=== PATIENT | male | born 2000 | race American Indian/Alaskan Native ===

== ENCOUNTER 2022-05-27 22:06 | Emergency (ER) | payer SELFPAY ==
[2022-05-27 22:20] VITALS: BMI 23.5
--- NOTE | 2022-05-28 00:04 | PC.NURSE ---
pt denies any self harm or plan, pt denies thoughts of wanting to harm others. pt steady gait, patent airway. pt showed up to ambulance bay door around 2244 asking if he had left his phone here. I didn't know he'd left the waiting room, i let him in and asked again do you have any thoughts or plans to harm yourself, he said no. i escorted him back to the waiting room. no phone was found, checked with reg desk. no phone found. pt said maybe he left it or the timber packer had it.
== END 2022-05-27 23:00 | disposition left against medical advice (07) ==
PROVIDERS: Emergency Provider Emergency Medicine
CPT/HCPCS: 99281

== ENCOUNTER 2022-06-29 21:51 | Emergency (ER) | payer SELFPAY ==
[2022-06-29 21:58] VITALS: BP 140/76; PULSE 120; RESP 20; TEMP 36.2; O2SAT 97
--- NOTE | 2022-06-29 21:59 | PC.NURSE ---
Patient getting on the floor in the middle of the room kneeling on one knee, leaning forward and growling at surveillance sensor officer at the door.
--- NOTE | 2022-06-29 22:17 | ED_ITS ---
HPI - Psych General Chief Complaint: Psychiatric Symptoms Stated Complaint: Involuntary - Gravely Disabled Time Seen by Provider: 06/29/22 22:17 Source: police Mode of arrival: other (Police) Limitations: other (Intoxication) History of Present Illness HPI Narrative: Patient is a 22-year-old male who arrives in police custody under a id a for evaluation of alcohol intoxication and concerns for the ability to take care of himself. Police state that they were called by a bystander after the patient was walking down the center of the wrote holding his side. He was obviously intoxicated. There was some concern that maybe he was injured. The police confronted the individual. They stated that he was obviously intoxicated and only minimally followed directions. Initially they were going to release the patient telling him to walk on the sidewalk but he continued to walk down the center of the road. He then went up to the back of the [employer] unit police car and started pounding on the windows. Also during this time the patient was belligerent and barking like a dog and yelling out. He arrived in handcuffs. He is unable to provide any HPI or review of systems. Is very quickly made aware upon his arrival that he would need to be sedated for his safety and the safety of others. Related Data Allergies Allergy/AdvReac Type Severity Reaction Status Date / Time Sulfa (Sulfonamide Allergy Verified 05/27/22 22:30 Antibiotics) Review of Systems Review of Systems ROS Unobtainable: Unobtainable due to mental condition Patient History Medical History Alcohol abuse tobacco type: vaping alcohol intake frequency: 0-2 drinks per day Substance Use Type: marijuana Exam Initial Vital Signs Initial Vital Signs: Vital Signs Temperature 97.2 F L 06/29/22 21:58 Pulse Rate 120 H 06/29/22 21:58 Respiratory Rate 20 06/29/22 21:58 Blood Pressure 140/76 06/29/22 21:58 Pulse Oximetry 97 06/29/22 21:58 Oxygen Delivery Method 06/29/22 21:58 Const General: disheveled HENMT Head: normal to inspection and normocephalic Resp Effort & Inspection: normal respiratory effort Auscultation: clear to auscultation bilaterally Cardio Rate: tachycardic Rhythm: regular rhythm Skin General: no rashes or lesions noted Neuro Other: Patient does not follow commands. He does move all 4 extremities. He is yelling and screaming. Extrem Other: No gross deformities Course Orders Ordered: ED Orders 06/29/22 22:10 Acetaminophen Stat Complete Blood Count AUTO DIFF Stat Comprehensive Metabolic Panel Stat Ethanol (ETOH) Stat Lipase Stat Salicylate Stat Thyroid Stimulating Hormone Stat 06/29/22 22:15 Covid-19 + FLU A/B + RSV - PCR Stat 06/29/22 22:19 Consult to [facility] [place] - Excellence Consultant Stat 06/29/22 22:58 Urinalysis and Microscopic Stat Urine Drug Screen, Rapid Stat Discontinued Medications Diphenhydramine HCl (Diphenhydramine 50 Mg/Ml Vial) 25 mg IM NOW ONE Stop: 06/29/22 22:18 Last Admin: 06/29/22 22:23 Dose: 25 mg Documented By: BELINDA Diphenhydramine HCl (Diphenhydramine 50 Mg/Ml Vial) 25 mg IM NOW ONE Stop: 06/29/22 23:46 Last Admin: 06/29/22 23:47 Dose: 25 mg Documented By: BELINDA Haloperidol (Haloperidol 5 Mg/Ml Vial) 5 mg IM NOW ONE Stop: 06/29/22 22:18 Last Admin: 06/29/22 22:23 Dose: 5 mg Documented By: SB Haloperidol (Haloperidol 5 Mg/Ml Vial) 2 mg IM NOW ONE Stop: 06/29/22 22:41 Last Admin: 06/29/22 22:43 Dose: 2 mg Documented By: SB Lorazepam (Lorazepam 2 Mg/Ml Inj) 2 mg IM NOW ONE Stop: 06/29/22 22:18 Last Admin: 06/29/22 22:23 Dose: 2 mg Documented By: SB Lorazepam (Lorazepam 2 Mg/Ml Inj) 2 mg IM NOW ONE Stop: 06/29/22 23:10 Last Admin: 06/29/22 23:13 Dose: 2 mg Documented By: SB Vital Signs Vital signs: Vital Signs - 8 hr 06/29/22 22:57 06/29/22 23:21 06/29/22 23:32 Pulse Rate 122 H 88 Respiratory Rate Blood Pressure 137/79 Pulse Oximetry 96 92 100 Oxygen Delivery Method Room Air Nasal Cannula Oxygen Flow Rate 2 06/29/22 23:28 06/29/22 23:53 06/30/22 00:04 Pulse Rate 86 83 Respiratory Rate Blood Pressure Pulse Oximetry 88 L 94 94 Oxygen Delivery Method Room Air Room Air Room Air Oxygen Flow Rate 0 06/30/22 01:00 06/30/22 03:46 Pulse Rate 83 77 Respiratory Rate 14 Blood Pressure 115/55 L Pulse Oximetry 94 97 Oxygen Delivery Method Room Air Room Air Oxygen Flow Rate MDM - Psych Medical Records Attestation: I reviewed the patient's medical records. Lab Data Attestation: I reviewed the patient's lab results. Result diagrams: 06/29/22 22:10 06/29/22 22:10 Labs: Lab Results 06/29/22 06/29/22 06/29/22 Range/Units 22:10 22:10 22:10 WBC 9.6 (4.5-11.0) X10^3/uL RBC 4.91 (4.5-5.9) X10^6/uL Hgb 15.6 (13.5-17.5) g/dL Hct 45.4 (41-53) % MCV 92.5 (80-100) fL MCH 31.8 (26-34) PG MCHC 34.4 (30-36) % RDW 14.8 (11.6-14.8) % Plt Count 284 (150-400) X10^3/uL Neut % (Auto) 50.3 (50-75) % Lymph % (Auto) 42.5 H (25-40) % Creek % (Auto) 6.3 (3-14) % Eos % (Auto) 0.7 L (2-4) % Baso % (Auto) 0.2 (0-2) % Neut # (Auto) 4800 (2665-7232) /uL Lymph # (Auto) 4100 (3722-5308) /uL Creek # (Auto) 600 (0-900) /uL Eos # (Auto) 100 (0-450) /uL Baso # (Auto) 0 (0-100) /uL Sodium 146 H (137-145) mmol/L Potassium 3.2 L (3.4-5.1) mmol/L Chloride 106 (98-107) mmol/L Carbon Dioxide 25 (22-32) mmol/L BUN 9 (9-20) mg/dL Creatinine 0.89 (0.66-1.25) mg/dL Estimated GFR > 60 (>60) mL/min BUN/Creatinine Ratio 10.1 (6-22) Glucose 124 H (70-100) mg/dL Calcium 9.1 (8.4-10.2) mg/dL Total Bilirubin 0.9 (0.2-1.3) mg/dL AST 41 (17-59) IU/L ALT 43 (<50) IU/L Alkaline Phosphatase 92 (38-126) U/L Total Protein 8.8 H (6.3-8.2) g/dL Albumin 5.1 H (3.5-5.0) g/dL Globulin 3.7 (1.7-4.1) g/dL Albumin/Globulin Ratio 1.4 (1.0-2.8) Lipase 47 (23-300) U/L TSH 2.53 (0.47-4.68) uIU/mL Urine Color Urine Appearance Urine pH (4.5-8.0) Ur Specific [place] (1.000-1.035) Urine Protein (Negative) Urine Glucose (UA) (Negative) g/dL Urine Ketones (NEGATIVE) Urine Occult Blood (Negative) Urine Nitrate (Negative) Urine Bilirubin (NEGATIVE) Urine Urobilinogen (0.2) E.U./dL Ur Leukocyte Esterase (NEGATIVE) Urine RBC (0-5/HPF) Urine WBC (0-5/HPF) Urine Bacteria (None) Ur Culture Indicated? Salicylates < 1.0 (<20) mg/dL U Opiates 300ng/mL cut (Negative) Ur Oxycodone Screen (Negative) Urine Methadone Screen (Negative) Acetaminophen < 10 (10-30) ug/mL Ur Barbiturates Screen (Negative) U Tricyclic Antidepress (Negative) Ur Phencyclidine Scrn (Negative) Ur Amphetamines Screen (Negative) U Methamphetamines Scrn (Negative) Ur MDMA Scrn (Ecstasy) (Negative) U Benzodiazepines Scrn (Negative) Urine Cocaine Screen (Negative) U Marijuana (THC) Screen (Negative) Ethyl Alcohol 298 H ( - 10) mg/dL SARS-CoV-2 (PCR) (Negative) Influenza A (RT-PCR) (NEGATIVE) Influenza B (RT-PCR) (NEGATIVE) RSV (PCR) (Negative) 06/29/22 06/29/22 06/29/22 Range/Units 22:15 22:58 22:58 WBC (4.5-11.0) X10^3/uL RBC (4.5-5.9) X10^6/uL Hgb (13.5-17.5) g/dL Hct (41-53) % MCV (80-100) fL MCH (26-34) PG MCHC (30-36) % RDW (11.6-14.8) % Plt Count (150-400) X10^3/uL Neut % (Auto) (50-75) % Lymph % (Auto) (25-40) % Creek % (Auto) (3-14) % Eos % (Auto) (2-4) % Baso % (Auto) (0-2) % Neut # (Auto) (2890-8712) /uL Lymph # (Auto) (0570-6315) /uL Creek # (Auto) (0-900) /uL Eos # (Auto) (0-450) /uL Baso # (Auto) (0-100) /uL Sodium (137-145) mmol/L Potassium (3.4-5.1) mmol/L Chloride (98-107) mmol/L Carbon Dioxide (22-32) mmol/L BUN (9-20) mg/dL Creatinine (0.66-1.25) mg/dL Estimated GFR (>60) mL/min BUN/Creatinine Ratio (6-22) Glucose (70-100) mg/dL Calcium (8.4-10.2) mg/dL Total Bilirubin (0.2-1.3) mg/dL AST (17-59) IU/L ALT (<50) IU/L Alkaline Phosphatase (38-126) U/L Total Protein (6.3-8.2) g/dL Albumin (3.5-5.0) g/dL Globulin (1.7-4.1) g/dL Albumin/Globulin Ratio (1.0-2.8) Lipase (23-300) U/L TSH (0.47-4.68) uIU/mL Urine Color Straw Urine Appearance Clear Urine pH 5 (4.5-8.0) Ur Specific [place] 1.005 (1.000-1.035) Urine Protein Negative (Negative) Urine Glucose (UA) Negative (Negative) g/dL Urine Ketones Negative (NEGATIVE) Urine Occult Blood Negative (Negative) Urine Nitrate Negative (Negative) Urine Bilirubin Negative (NEGATIVE) Urine Urobilinogen Normal (0.2) E.U./dL Ur Leukocyte Esterase Negative (NEGATIVE) Urine RBC None seen (0-5/HPF) Urine WBC None seen (0-5/HPF) Urine Bacteria None seen (None) Ur Culture Indicated? Cult not indicated Salicylates (<20) mg/dL U Opiates 300ng/mL cut Negative (Negative) Ur Oxycodone Screen Negative (Negative) Urine Methadone Screen Negative (Negative) Acetaminophen (10-30) ug/mL Ur Barbiturates Screen Negative (Negative) U Tricyclic Antidepress Negative (Negative) Ur Phencyclidine Scrn Negative (Negative) Ur Amphetamines Screen Negative (Negative) U Methamphetamines Scrn Negative (Negative) Ur MDMA Scrn (Ecstasy) Negative (Negative) U Benzodiazepines Scrn Negative (Negative) Urine Cocaine Screen Negative (Negative) U Marijuana (THC) Screen Positive H (Negative) Ethyl Alcohol ( - 10) mg/dL SARS-CoV-2 (PCR) Negative (Negative) Influenza A (RT-PCR) Flu a negative (NEGATIVE) Influenza B (RT-PCR) Flu b negative (NEGATIVE) RSV (PCR) Negative (Negative) MDM Narrative Medical decision making narrative: Patient is disheveled. Is obviously intoxicated. Was violent. Was not following commands. Was initially given 5 of Haldol 2 of Ativan 25 of Benadryl. This seemed to do very little. He was placed in four-point restraints. He then was given another 2 mg of Haldol. This did not improve in if his symptoms either. He was still yelling. Pulling at his restraints. Was unable to follow commands. He was then given another 2 mg of Ativan. This did seem to calm him down somewhat however he did have outbursts. Was continued to pull at his restraints. Would not follow commands. He was then given another 25 mg of Benadryl. After all of this the patient has been sleeping. His restraints have been removed. Will now need to watch the patient until he ele and his sedating medication wears off. Patient continues to sleep. Has been stable. Continues to be out of restraints. Care turned over to deep provider to continue to observe until patient becomes sober and re-evaluation. Restraint [id number] Restraint [id number]-hl-[id number] Evaluation [id number] #1: Patient Appearance: Disheveled Level of Consciousness: Combative, Disoriented, Inappropriate and Restless Speech Pattern: Inappropriate and Includes Profanity Mood Description: Angry and Hostile Ability to Follow Directions: Poor Respirations: Normal respiratory rate Cardiac: Regular Rate and Regular Rhythm Circulation: Moves all extremities Behavior necessitating restraint: Agitated, ETOH/Substance Abuse and Violent Restraint Risks: Restricted blood flow, Damaged nerves and Damaged tissue Restraint risks explained to patient: No Restraint risks explained to family: No Reaction to Intervention: Pulling at Restraints and Trying to Get Restraints Off Restraint Needs: Continue Restraints
[2022-06-29] MEDS: diphenhydrAMINE 50 MG/ML VIAL 25 MG IM ×2 (22:23→23:47)
[2022-06-29] MEDS: LORazepam 2 MG/ML INJ IM ×2 (22:23→23:13)
[2022-06-29] MEDS: HALOPERIDOL 5 MG/ML VIAL IM (22:23)
--- NOTE | 2022-06-29 22:23 | PC.NURSE ---
Pt verbally aggressive and physically aggressive toward this RN and multiple police officers. Pt in hand cuffs (in front). Officers had pt lay down in bed. Dr. Gomez to bedside for face to face evaluation. Pt was medicated for delusional /agitation/ anxiety / violent behavior and placed in 4 pt restraint for pt and staff safety.
--- NOTE | 2022-06-29 22:28 | PC.NURSE ---
2216: Pt charges at staff while screaming and PD steps in. Provider aware.
[2022-06-29 22:38] LABS: Add Manual Diff / Slide Review NO; Basophils Absolute Auto 0 /uL (0-100); Basophils Percent Auto 0.2 % (0-2); Eosinophils Absolute Auto 100 /uL (0-450); Eosinophils Percent Auto 0.7 % (2-4); Hematocrit 45.4 % (41-53); Hemoglobin 15.6 g/dL (13.5-17.5); Lymphocytes Absolute Auto 4100 /uL (1100-4500); Lymphocytes Percent Auto 42.5 % (25-40); Mean Corpuscular HGB Conc 34.4 % (30-36); Mean Corpuscular Hemoglobin 31.8 PG (26-34); Mean Corpuscular Volume 92.5 fL (80-100); Monocytes Absolute Auto 600 /uL (0-900); Monocytes Percent Auto 6.3 % (3-14); Neutrophils Absolute Auto 4800 /uL (1500-7000); Neutrophils Percent Auto 50.3 % (50-75); Platelet Count 284 X10^3/uL (150-400); Red Blood Cell Count 4.91 X10^6/uL (4.5-5.9); Red Cell Distribution Width 14.8 % (11.6-14.8); White Blood Cell Count 9.6 X10^3/uL (4.5-11.0)
[2022-06-29 22:39] LABS: Alanine Aminotransferase 43 IU/L (<50); Albumin 5.1 g/dL (3.5-5.0); Albumin Globulin Ratio 1.4 (1.0-2.8); Alkaline Phosphatase 92 U/L (38-126); Aspartate Aminotransferase 41 IU/L (17-59); BUN Creatinine Ratio 10.1 (6-22); Bilirubin Total 0.9 mg/dL (0.2-1.3); Blood Urea Nitrogen 9 mg/dL (9-20); Calcium 9.1 mg/dL (8.4-10.2); Carbon Dioxide 25 mmol/L (22-32); Chloride 106 mmol/L (98-107); Estimated Glomerular Filt Rate > 60 mL/min (>60); Globulin 3.7 g/dL (1.7-4.1); Glucose 124 mg/dL (70-100); HEMOLYSIS < 15 (0-50); Lipase 47 U/L (23-300); Potassium 3.2 mmol/L (3.4-5.1); Sodium 146 mmol/L (137-145); Total Protein 8.8 g/dL (6.3-8.2)
[2022-06-29] MEDS: HALOPERIDOL 5 MG/ML VIAL 2 MG IM (22:43)
--- NOTE | 2022-06-29 22:54 | PC.NURSE ---
Pt continues to be combative and threatening staff. Pt said I'm going to kill you two times to medic student Bran. Urinal provided multiple times. Pt not voiding at this time.
[2022-06-29 22:57] VITALS: BP 137/79; PULSE 122; O2SAT 96
--- NOTE | 2022-06-29 23:01 | PC.NURSE ---
Patient was finally willing to pee into a urinal. Sent specimen to lab.
--- NOTE | 2022-06-29 23:05 | PC.NURSE ---
Patient thrashing in bed, screaming, says he must leave. seizure pads in place
[2022-06-29 23:10] LABS: UR Morphine/Opiate cutoff 300 Negative (Negative); Ur Creatinine 20 (Normal); Ur Specific Gravity 1.005 (Normal); Urine Amphetamines Negative (Negative); Urine Barbiturates Negative (Negative); Urine Benzodiazepines Negative (Negative); Urine Cocaine Negative (Negative); Urine MDMA Negative (Negative); Urine Methadone Negative (Negative); Urine Methamphetamines Negative (Negative); Urine Oxycodone Negative (Negative); Urine Phencyclidine Negative (Negative); Urine Tetrahydrocannabinol Positive (Negative); Urine Tricyclic Antidepressant Negative (Negative); Urine pH 5 (Normal)
[2022-06-29 23:12] LABS: Appearance Urine UA Clear; Bilirubin Urine UA Negative (NEGATIVE); Color Urine UA Straw; Glucose Urine UA NEGATIVE (Negative); Ketones Urine UA NEGATIVE (NEGATIVE); Nitrite Urine UA NEGATIVE (Negative); Occult Blood Urine UA NEGATIVE (Negative); Protein Urine UA NEGATIVE (Negative); Specific Gravity Urine UA 1.005 (1.000-1.035); Urobilinogen Urine UA Normal E.U./dL (0.2); pH Urine UA 5 (4.5-8.0)
[2022-06-29 23:13] LABS: Leukocyte Esterase Urine UA NEGATIVE (NEGATIVE)
--- NOTE | 2022-06-29 23:13 | PC.NURSE ---
Pt continues to thrash and be aggressive. Pt continues to scream out in nonsensical manner. Provider aware. 1:1 sitter at bedside with this RN checking in frequently.
[2022-06-29 23:17] LABS: Bacteria Urine None Seen; Culture Indicated Urine Cult Not Indicated; RBC Urine None Seen (0-5/HPF); WBC Urine None Seen (0-5/HPF)
[2022-06-29 23:21] VITALS: PULSE 88; O2SAT 92
[2022-06-29 23:28] VITALS: O2SAT 88
[2022-06-29 23:32] VITALS: O2SAT 100
[2022-06-29 23:33] LABS: Acetaminophen < 10 ug/mL (10-30); Ethanol (ETOH) 298 mg/dL; Salicylate < 1.0 mg/dL (<20); Thyroid Stimulating Hormone 2.53 uIU/mL (0.47-4.68)
--- NOTE | 2022-06-29 23:33 | PC.NURSE ---
Pt desat to 88% on RA. 2 L on NC, now at 100%. Provider aware. Pt again becoming combative.
[2022-06-29 23:36] LABS: Influenza A - CEPHEID Flu A NEGATIVE (NEGATIVE); Influenza B - CEPHEID Flu B NEGATIVE (NEGATIVE); Respiratory Syncytial Virus Negative (Negative)
[2022-06-29 23:37] LABS: COVID-19 CEPHEID 4-PLEX PCR Negative (Negative)
--- NOTE | 2022-06-29 23:37 | PC.NURSE ---
Addendum entered by Jil Valentin CNA 06/30/22 00:31: COORDINATE MEASURING MACHINE TECHNICIAN note: patient snoring. Oxygen saturation between 94-96% on room air. Pulse at 83-85 beats per minute. Original Note: COORDINATE MEASURING MACHINE TECHNICIAN note: patient is in bed with restraints yelling, moving body side to side and attempting to sit up while yelling, grabbing at bed rails. MASON iglesias.
--- NOTE | 2022-06-29 23:51 | PC.NURSE ---
2340: Pt combative and banging head on side rails. Attempted to deescalate. Seizure pads in place. Pt continues to bang head on rails. Provider aware.
[2022-06-29 23:53] VITALS: PULSE 86; O2SAT 94
[2022-06-30 00:04] VITALS: PULSE 83; O2SAT 94
[2022-06-30 01:00] VITALS: BP 115/55; PULSE 83; RESP 14; O2SAT 94
[2022-06-30 03:46] VITALS: PULSE 77; O2SAT 97
--- NOTE | 2022-06-30 04:00 | PC.NURSE ---
Addendum entered by Jil Valentin CNA 06/30/22 06:16: ROBE note: patient is sleeping on his belly. He pulled up his pants at one point while moving around in his sleep. Pulse is 81-87 beats per minute with an oxygen level of 96-98% on room air. Original Note: ROBE note: Patient sleeping on belly without restraints. Patient has continuous pulse oximeter on finger. Heart rate is 87-90 beats per minute, oxygen is 100% at room air.
--- NOTE | 2022-06-30 05:27 | PC.NURSE ---
Pt reports increase in pain in chest with coughing, can reproduce pain with palpation to chest. Provider aware.
[2022-06-30 08:26] VITALS: BP 130/70; PULSE 105; RESP 18; TEMP 36.6; O2SAT 99
== END 2022-06-30 08:40 | disposition home or self-care (01) ==
PROVIDERS: Emergency Medicine; Emergency Provider Emergency Medicine
DX: F10.129 Alcohol abuse with intoxication, unspecified (principal); Y90.8 Blood alcohol level of 240 mg/100 ml or more
CPT/HCPCS: 0241U; 80053; 80305; 80320; 80329; 81001; 83690; 84443; 85025; 96372; 99284; 99285; G0480; J1200; J1630; J2060